=== PATIENT | female | born 1965 | race Caucasian/White ===

== ENCOUNTER 2020-07-18 15:48 | Outpatient (CLI) | payer OTHER, SELFPAY ==
--- NOTE | ~2020-07-18 | US_ITS ---
EXAMINATION: US thyroid DATE: 07/18/2020 16:21 INDICATION: Multinodular goiter TECHNIQUE: Multiple ultrasound images of the thyroid were obtained. COMPARISON: None. FINDINGS: The right thyroid lobe measures 5.5 x 2.0 x 1.5 cm. The left thyroid lobe measures 6.1 x 1.8 x 2.0 c m. There are multiple bilateral similar appearing thyroid nodules which are predominantly solid, hyp oechoic with smooth margins, with increased internal vascular flow on color Doppler and with multiple internal echogenic foci. A few of the echogenic foci demonstrate posterior comet tailing but the alondra ority are smaller punctate foci rendering these TI-RADS 5 nodules (highly suspicious , FNA if >=1.0 c m, annual followup is >0.5 cm). The 2 largest measure 3.2 cm in maximal diameter and the right thyroi d lobe and 2.2 cm in maximal diameter and the left thyroid lobe. There is normal echotexture, echogen icity and vascular flow throughout the surrounding thyroid gland. IMPRESSION: 1. Multinodular goiter with a few bilateral TI RADS 5 nodules. Ultrasound-guided biopsy would be farnaz mmended for the 2 largest such nodules measuring 3.2 cm in the right thyroid lobe and 2.2 cm and the left thyroid lobe. Reviewed, dictated and finalized at location A. [facility] IMPRESSION: 1. Multinodular goiter with a few bilateral TI RADS 5 nodules. Ultrasound-guide d biopsy would be recommended for the 2 largest such nodules measuring 3.2 cm i n the right thyroid lobe and 2.2 cm and the left thyroid lobe.
== END 2020-07-18 15:49 | disposition home or self-care (01) ==
PROVIDERS: Visit Provider Internal Medicine Endocrinology, Diabetes & Metabolism
DX: E04.2 Nontoxic multinodular goiter (principal)
CPT/HCPCS: 76536

== ENCOUNTER 2022-12-22 09:02 | Outpatient (CLI) | payer OTHER, SELFPAY ==
[2022-12-22 13:47] LABS: Free T4 Free Thyroxine 1.21 ng/mL (0.78-2.19)
[2022-12-22 14:00] LABS: Thyroid Stimulating Hormone 0.823 uIU/mL (0.465-4.680)
== END 2022-12-22 09:03 | disposition home or self-care (01) ==
LOC: ANHWCLAB 09:04
PROVIDERS: Visit Provider Internal Medicine Endocrinology, Diabetes & Metabolism
DX: E05.90 Thyrotoxicosis, unspecified without thyrotoxic crisis or storm (principal)
CPT/HCPCS: 36415; 84439; 84443